=== PATIENT | female | born 1990 | race Two or more races ===

== ENCOUNTER → 2019-10-17 | Emergency (ER) | payer OTHER ==
[~2019-10-17] VITALS: Ht 154.9 cm; Wt 72.6 kg
[~2019-10-17] MED LIST: ATABEX PRENATAL1 TAB; PRENATAL1 TAB
== END | disposition home or self-care (01) ==
LOC: ER 21:46
DX: R42 Dizziness and giddiness (principal); K29.70 Gastritis, unspecified, without bleeding; R51 Headache

== ENCOUNTER 2020-06-21 17:45 | Emergency (ER) | payer OTHER ==
[~2020-06-21] VITALS: Ht 157.5 cm; Wt 70.3 kg
== END 2020-06-21 23:51 | disposition home or self-care (01) ==
LOC: ER 17:45
DX: N20.0 Calculus of kidney (principal)